=== PATIENT | male | born 1980 | race African-American/Black ===

== ENCOUNTER 2024-07-04 10:41 | Emergency (ER) | payer OTHER ==
[2024-07-04 10:56] VITALS: RESP 18
--- NOTE | 2024-07-04 11:08 | ED ---
Skin/Abscess/FB HPI - General Chief complaint: Skin/Abscess/Foreign Body Stated complaint: L Armpit Bump Time Seen by Provider: 07/04/24 10:57 Source: patient, RN notes reviewed Mode of arrival: ambulatory Limitations: no limitations - History of Present Illness Initial comments: This is a 44-year-old male who presents to the emergency department for an abscess in the left axilla. States that he injured himself shaving about 3 years ago. Since then he has had problems with a recurrent abscess in this area. States that it usually goes away on its own. However, this time it flared up on him it became much larger than it typically gets and the pain is much worse. Denies any fevers or chills. He has never had this drained or been on any treatment for it otherwise. MD complaint: abscess/boil - Related Data Previous Rx's Medication Instructions Recorded Ibuprofen 800 mg PO Q8H PRN #30 tab 07/04/24 clindamycin HCL 300 mg PO QID 7 Days #28 capsule 07/04/24 Allergies Allergy/AdvReac Type Severity Reaction Status Date / Time No Known Allergies Allergy Verified 07/04/24 10:56 Review of Systems ROS Statement: Those systems with pertinent positive or pertinent negative responses have been documented in the HPI. ROS Other: All systems not noted in ROS Statement are negative. Past Medical History Past Medical History: No Reported History History of Any Multi-Drug Resistant Organisms: None Reported Past Surgical History: No Surgical Hx Reported Past Psychological History: No Psychological Hx Reported Smoking Status: Former smoker Past Alcohol Use History: Rare Past Drug Use History: None Reported General Exam Limitations: no limitations General appearance: alert, in no apparent distress Head exam: Present: atraumatic, normocephalic, normal inspection Respiratory exam: Present: normal lung sounds bilaterally. Absent: respiratory distress, wheezes, rales, rhonchi, stridor Cardiovascular Exam: Present: regular rate, normal rhythm Neurological exam: Present: alert, oriented X3, CN II-XII intact Psychiatric exam: Present: normal affect, normal mood Skin exam: Present: other (Tender fluctuant erythematous abscess to the left axilla) Course Vital Signs 07/04/24 07/04/24 10:52 12:18 Temperature 98.3 F 98.1 F Pulse Rate 96 90 Respiratory 18 18 Rate Blood Pressure 180/84 158/79 O2 Sat by Pulse 98 98 Oximetry Procedures - Incision & Drainage Consent Obtained: verbal consent Indication: Abscess Site: other (left axilla) Size (cm): 4 Anesthetic Used: lidocaine 1% Amount (mLs): 5 I&D Cleaning Method: Alcohol Wipe Sterile Field Used?: Yes Scalpel Used: #11 I&D Drainage Obtained: Pus, Blood Culture Obtained?: Yes Medical Decision Making - Medical Decision Making This is a 44-year-old male who presents to the emergency department for an abscess in the left axilla. Was pt. sent in by a medical professional or institution? @ -No Did you speak to anyone other than the patient for history? @ -No Did you review nursing and triage notes? @ -Yes, and I agree, it is accurate with regards to the patient's symptoms. Were old charts reviewed? @ -No Differential Diagnosis? @ -Abscess, lymph node, cellulitis, hematoma, this is not meant to be an all- inclusive list. EKG interpreted by me (3pts min.)? @ -Not obtained X-rays interpreted by me (1pt min.)? @ -Not obtained CT interpreted by me (1pt min.)? @ -Not obtained U/S interpreted by me (1pt. min.)? @ -Not obtained What testing was considered but not performed? (CT, X-rays, U/S, labs)? Why? @ -None What meds were considered but not given? Why? @ -None Did you discuss the management of the patient with other professionals? @ -No Did you reconcile home meds? @ -No Was smoking cessation discussed for >3mins.? @ -No Was critical care preformed (if so, how long)? @ -No Were there social determinants of health that impacted care today? How? (Homelessness, low income, unemployed, alcoholism, drug addiction, transportation, low edu. Level, literacy, decrease access to med. care, group home, rehab)? @ -No Was there de-escalation of care discussed even if they declined? (Discuss DNR or withdrawal of care, Hospice)? @ -No What co-morbidities impacted this encounter? (DM, HTN, Smoking, COPD, CAD, Cancer, CVA, Hep., AIDS, mental health diagnosis, sleep apnea, morbid obesity)? @ -None Was patient admitted / discharged? @ -Discharged. Patient had a large fluctuant abscess to the left axilla on exam. Incision and drainage performed and a copious amount of purulent material was expressed. He had significant improvement in symptoms afterwards. Aerobic and anaerobic cultures were obtained. Patient advised that he does not have insurance and would like to have the most cost effective antibiotic option. I did look up GoodRx prices and it will be cheaper for him to be on just clindamycin as opposed to both Bactrim and Keflex. This was prescribed along with ibuprofen for pain relief. Also advised warm compresses. Patient discharged home in stable condition. Case discussed with ED attending Dr. Lozano. Return precautions reviewed in depth, the patient is instructed to return to the emergency department with any new, worsening, or concerning symptoms. Patient verbalized understanding. Undiagnosed new problem with uncertain prognosis? @ -None Drug Therapy requiring intensive monitoring for toxicity (Heparin, Nitro, Insulin, Cardizem)? @ -None Were any procedures done? @ -Incision and drainage Diagnosis/symptom? @ -Left axilla abscess Acute, or Chronic, or Acute on Chronic? @ -Acute Uncomplicated (without systemic symptoms) or Complicated (systemic symptoms)? @ -Uncomplicated Side effects of treatment? @ -None Exacerbation, Progression, or Severe Exacerbation] @ -Not applicable Poses a threat to life or bodily function? @ -No Disposition Clinical Impression: Abscess of left axilla Disposition: HOME SELF-CARE Instructions (If sedation given, give patient instructions): Abscess Incision and Drainage (ED), Abscess (ED) Additional Instructions: Return to the emergency department with any new, worsening, or concerning symptoms. Download the [employer] meron to save money on your prescriptions. Take the antibiotic as prescribed for 7 days. Alternate with ibuprofen and Tylenol as needed for pain relief. Apply warm compresses. Follow up with your primary care provider in 1-2 days. Prescriptions: clindamycin HCL 300 mg PO QID 7 Days #28 capsule Ibuprofen 800 mg PO Q8H PRN #30 tab PRN Reason: Pain Is patient prescribed a controlled substance at d/c from ED?: No Referrals: None,Stated [Primary Care Provider] - 1-2 days Time of Disposition: 12:09
[2024-07-04] MEDS: LIDOCAINE 1% INJ 10MG/ML (20 ML MDV) SQ ONE (11:30)
[2024-07-04] MEDS: HYDROmorphone 1 MG/ML 1 ML SYRINGE IM STA (11:30)
[2024-07-04] MEDS: ACET/COD 300 MG/30 MG STARTER PACK 6 TAB BTL PO STA (12:14)
[2024-07-04 12:20] VITALS: BP 158/79; PULSE 90; TEMP 98.1
== END 2024-07-04 12:20 | disposition home or self-care (01) ==
LOC: EC 10:41
DX: L02.412 Cutaneous abscess of left axilla (principal); A41.50 Gram-negative sepsis, unspecified; Z87.891 Personal history of nicotine dependence
CPT/HCPCS: 87070; 87205; 87075; 99283; 10060; 96372; J2003; J1171; 87077; 87186